=== PATIENT | female | born 1970 | race Caucasian/White ===

== ENCOUNTER → 2017-04-22 | Day surgery (SDC) | payer OTHER ==
[~2017-04-22] MED LIST: BUPIVACAINE/EPI 0.5% 30 ML SDV ONE; CEFAZOLIN 2 GM/DEXTROSE/100 ML BAG IV ONE; DEXAMETHASONE 4 MG/ML VIAL ONE; HYDROmorphONE/DILAUDID 1 MG/ML SYR ONE; LIDOCAINE 2% 5 ML SDV ONE; LR 1,000 ML IV ONE; MIDAZOLAM 2 MG/2 ML VIAL IVP ONE; NALOXONE HCL 0.4 MG/ML INJ IVP PRN; ONDANSETRON 4 MG/2 ML VIAL IVP PRN; ONDANSETRON 4 MG/2 ML VIAL ONE; ONDANSETRON DISINTEGRATING 4 MG TAB PO PRN; OXYCODONE/APAP 5/325 TAB ONE; OXYCODONE/APAP 5/325 TAB PO PRN; PROMETHAZINE HCL 25 MG/ML INJ IVP PRN; PROPOFOL 200 MG/20 ML VIAL ONE; ceFAZolin 2 GM/DEXTROSE 100 ML IV ONE; fentaNYL 100 MCG/2 ML INJ ONE
--- NOTE | 2017-04-22 10:02 | PDGENHP ---
History & Physical Chief Complaint: left knee pain History of Present Illness: Patient presents for left knee arthroscopy and meniscectomy. Has been having ongoing pain. Pertinent Past, Social, Family History: sleep apnea. hypertension Relevant Physical Exam: NAD, well appearing, no distress. EOMi, face symmetric. MAEx4 Cardiorespiratory Assessment: regular rate. breathing comfortably
--- NOTE | 2017-04-22 10:06 | PDANEPAE ---
ANE History of Present Illness Meniscus tear ANE Past Medical History - Cardiovascular History Hx Hypertension: Yes Hx Arrhythmias: No Hx Chest Pain: No Hx Coronary Artery / Peripheral Vascular Disease: No Hx CHF / Valvular Disease: No Hx Palpitations: No - Pulmonary History Hx COPD: No Hx Asthma/Reactive Airway Disease: Yes Hx Recent Upper Respiratory Infection: No Hx Oxygen in Use at Home: No - Neurologic History Hx Cerebrovascular Accident: No Hx Seizures: No Hx Dementia: No - Endocrine History Hx Diabetes: No - Renal History Hx Renal Disorders: No - Liver History Hx Hepatic Disorders: No - Neurological & Psychiatric Hx Hx Neurological and Psychiatric Disorders: Yes - Cancer History Hx Cancer: No - Congenital Disorder History Hx Congenital Disorders: No - GI History Hx Gastrointestinal Disorders: No - Chronic Pain History Chronic Pain: No ANE Review of Systems - Exercise capacity METS (RN): 4 METS ANE Patient History - Allergies Allergies/Adverse Reactions: sumatriptan [From Imitrex] Allergy (Verified 04/09/17 10:10) sumatriptan succinate [From Imitrex] Allergy (Verified 04/09/17 10:10) - Home Medications Home medications: home medication list seen and reviewed Home Medications: Naproxen 04/09/17 [Last Taken 04/12/17 15:00] traMADol 04/09/17 [Last Taken 04/21/17 07:30] Verapamil 240 mg 04/22/17 [Last Taken 04/21/17 07:00] - NPO status NPO Since - Liquids (Date): 04/22/17 NPO Since - Liquids (Time): 04:00 NPO Since - Solids (Date): 04/22/17 NPO Since - Solids (Time): 20:30 - Smoking Hx Smoking Status: Never smoked ANE Labs/Vital Signs - Vital Signs Blood Pressure: 156/103 Heart Rate: 90 Respiratory Rate: 15 O2 Sat (%): 94 Height: 165.1 cm Weight: 129.274 kg ANE Physical Exam - Airway Neck exam: FROM Mallampati Score: Class 2 Mouth exam: normal dental/mouth exam - Pulmonary Pulmonary: no respiratory distress - Cardiovascular Cardiovascular: regular rate and rhythym - ASA Status ASA Status: II ANE Anesthesia Plan Anesthesia Plan: GA w LMA
[2017-04-22] MEDS: fentaNYL 100 MCG/2 ML INJ IVP PRN ×4 (11:44→12:13)
[2017-04-22] MEDS: HYDROmorphONE/DILAUDID 1 MG/ML SYR IVP PRN ×3 (11:47→12:08)
--- NOTE | 2017-04-22 11:54 | POSTOPPROG ---
Post Op Note Date of Operation: 04/22/17 Surgeon: Kim Diego Chef De Cuisine: Daly García Anesthesiologist: Dr. Shankar Anesthesia: GET(General Endotracheal) Pre-op Diagnosis: right knee medial meniscus tear Post-op Diagnosis: right knee medial meniscus tear Indication: knee pain Procedure: partial meniscectomy Inf/Abcess present in the surg proc area at time of surgery?: No EBL: Minimal Complications: none
--- NOTE | 2017-04-22 11:55 | SOAPPROG ---
SOAP Progress Note Assessment/Plan: Assessment/Plan: 46y/o female s/p left knee partial medial meniscectomy - orders as written - home when PACU criteria met - ambulate with crutches x 2-3 days - call with issues or concerns 04/22/17 11:54 Subjective: Feeling fine, pain well managed Objective: Vital Signs Temp Pulse Resp BP Pulse Ox 37 C 90 15 156/103 H 94 04/22/17 11:39 04/22/17 10:52 04/22/17 10:52 04/22/17 10:52 04/22/17 10:52 NAD, well appearing, no distress EOMi, face symmetric MAEx4 incisions clean, dressed ICD10 Worksheet Patient Problems: Problems Problem Status Onset Knee pain Acute - ICD10 Problem Qualifiers (1) Knee pain Qualifiers: Chronicity: C Laterality: L
[2017-04-22 12:23] VITALS: RESP 16
--- NOTE | 2017-04-22 12:27 | POSTANESTH ---
Post Anesthetic Evaluation Cardiovascular Status: Normal, Stable Respiratory Status: Normal, Stable Level of Consciousness/Mental Status: Can Participate in Eval Pain Control: Adequate, Prn Tx Ordered Nausea/Vomiting Control: Adequate, Prn Tx Ordered Complications Possibly Related to Anesthesia: None Noted
[2017-04-22 13:17] VITALS: PULSE 78; O2SAT 97
[2017-04-22 14:21] VITALS: BP 113/80; TEMP 97.7
--- NOTE | 2017-04-25 07:48 | GOP ---
[f rep st] OPERATIVE REPORT DATE OF OPERATION: 04/22/2017 SURGEON: Kim Diego MD CIRCULAR SHEAR OPERATOR: JANNY Mascorro. ANESTHESIA: General. PREOPERATIVE DIAGNOSIS: Medial meniscus tear with chondromalacia patella, left knee. POSTOPERATIVE DIAGNOSIS: Bilateral meniscus tears with chondromalacia patella, left knee. PROCEDURE PERFORMED: Arthroscopy, partial bilateral meniscectomy, chondroplasty lateral femoral con dyle and patella, left knee. FINDINGS: The diagnostic arthroscopy of the left knee was performed with the following findings. T he patient had grade 3 chondromalacia of the inferior pole of the patella. The superior portion of the patella was intact as was the trochlear groove. The medial compartment was entered and the yuni ent was noted to have a radial tear in the posterior horn of the medial meniscus. This extended to the posterior root. There was grade 2 chondromalacia of the medial femoral condyle. A partial medi al meniscectomy was performed of the posterior horn of the medial meniscus. Approximately 25%-30% o f the meniscus was excised. The meniscus was trimmed back to a stable rim. Chondroplasty of the me dial femoral condyle was also performed. The ACL was visualized in the intercondylar notch and note d to be intact. The lateral compartment was inspected and there was some fraying of the lateral men iscus which was trimmed. There was a small area approximately 8-10 mm in diameter. On the lateral femoral condyle where there was near full thickness loss of the cartilage. There were loose flaps o f articular cartilage which were removed. The femoral and tibial condyles were otherwise intact. ESTIMATED BLOOD LOSS: Minimal. DESCRIPTION OF PROCEDURE: The patient was taken to the operating room, placed in supine position on the operating table. Following induction of adequate general inhalation anesthesia, the knee and l eg were prepped and draped in the usual sterile manner. The patient received 2 g of IV Ancef. The arthroscope was introduced through a lateral portal and the instrumentation through a medial portal. A diagnostic arthroscopy was performed with the above-noted findings. Our attention was turned 1s t to the pathology in the medial compartment. The medial meniscus was trimmed with the baskets and the shaver. It was trimmed back to a stable rim. A chondroplasty of the patella was then performed on the medial femoral condyle. The instruments were then placed laterally and a partial lateral me niscectomy was performed with the baskets. The chondral lesion on the lateral femoral condyle was a lso trimmed with the shaver. Finally the instruments were placed in the patellofemoral joint and ch ondroplasty of the patella was performed. At the completion the procedure, the instrumentation was removed and the knee was injected with 20 cc of 0.5% Marcaine with epinephrine. The portals were cl osed using 4-0 nylon in an interrupted fashion. Sterile dressings were applied. The patient tolera isabelal the procedure well and there were no complications. Estimated blood loss minimal. Final sponge , needle counts were correct. The patient was transported to the recovery room in good condition. /[id number]/MODL
== END | disposition home or self-care (01) ==
LOC: FSGY 08:21
PROVIDERS: ATTEND Orthopaedic Surgery
PROC: 0SBD4ZZ Excision of Left Knee Joint, Percutaneous Endoscopic Approach (ICD-10-PCS; principal; 2017-04-22 10:00)
PROC: 0MQP4ZZ Repair Left Knee Bursa and Ligament, Percutaneous Endoscopic Approach (ICD-10-PCS; principal; 2017-04-22 10:00)
DX: M23.232 Derangement of other medial meniscus due to old tear or injury, left knee (principal); M22.42 Chondromalacia patellae, left knee; G47.30 Sleep apnea, unspecified; I10 Essential (primary) hypertension
CPT/HCPCS: J0690; J1100; J1170; J2250; J2405; J2704; J3010